=== PATIENT | female | born 2000 | race Two or more races ===

== ENCOUNTER → 2024-04-06 | Outpatient (REF) | payer OTHER | LOC: M SFHCWAGY 14:41 | PROVIDERS: ATTEND Obstetrics & Gynecology | DX: O09.293 Supervision of pregnancy with other poor reproductive or obstetric history, third trimester (principal); Z3A.36 36 weeks gestation of pregnancy ==

== ENCOUNTER 2024-05-03 03:48 | Inpatient (IN) | payer OTHER ==
[~2024-05-03] VITALS: Ht 167.6 cm; Wt 67.0 kg
[2024-05-03] MEDS: OXYTOCIN INJ 10UNITS/ML 1ML VIAL IM ONE (03:45)
[2024-05-03 04:01] VITALS: BP 131/84
[2024-05-03] MEDS ORDERED: LIDOCAINE 1% MDV 20ML VIAL As Ordered ONE (04:14)
[2024-05-03] MEDS ORDERED: RHOGAM 300MCG (1500IU) INJ IM SCH (04:40)
[2024-05-03] MEDS ORDERED: METHYLERGONOVINE MALEATE 0.2 MG TAB PO PRN (04:40)
[2024-05-03] MEDS: LIDOCAINE 1% MDV 20ML VIAL SC ONE (06:00)
[2024-05-03 06:19] LABS: HIV 1&2 SCREEN NEGATIVE (NEGATIVE)
[2024-05-03 06:58] VITALS: BP 132/75; O2SAT 100
[2024-05-03] MEDS: PRENATAL VITAMINS CHEWABLE TABLET PO SCH (09:26)
[2024-05-03] MEDS: DIBUCAINE 1% OINTMENT 30GM TOP PRN (09:31)
[2024-05-03] MEDS ORDERED: SPIR500T PO (10:33)
[2024-05-03] MEDS ORDERED: VITA1CAP25 PO (10:33)
[2024-05-03] MEDS ORDERED: PRENTAB9 PO (10:33)
[2024-05-03] MEDS ORDERED: HOME MED LIST COMPLETE! XX SCH (10:35)
[2024-05-03] MEDS: IBUPROFEN 800 MG TAB PO PRN (13:09)
[2024-05-03] MEDS: ACETAMINOPHEN 325 MG TAB PO PRN (15:45)
[2024-05-03 18:00] VITALS: BP 123/62; O2SAT 98
[2024-05-03] MEDS: DOCUSATE SODIUM 100MG CAPSULE PO PRN (20:39)
[2024-05-03] MEDS: ACETAMINOPHEN 500 MG TAB PO PRN (20:40)
[2024-05-04] MEDS: IBUPROFEN 600MG TAB PO PRN (00:38)
[2024-05-04 06:00] VITALS: BP 115/70; O2SAT 100
[2024-05-04] MEDS ORDERED: IBUP80TA PO (10:21)
[2024-05-04] MEDS ORDERED: ACET-683 PO (10:21)
[2024-05-05] MEDS ORDERED: MEASLES,MUMPS,RUBELLA VACCINE INJ (MMR-II) SC.IMMUN ONE (09:00)
== END 2024-05-04 14:05 | disposition home or self-care (01) | DRG 769 ==
LOC: M LDO 03:48 → M LDI 03:54 → M OBS 06:29
PROVIDERS: ADMIT Advanced Practice Midwife; ATTEND Advanced Practice Midwife
PROC: 10D17Z9 Manual Extraction of Products of Conception, Retained, Via Natural or Artificial Opening (ICD-10-PCS; principal; 2024-05-03)
PROC: 0HQ9XZZ Repair Perineum Skin, External Approach (ICD-10-PCS; 2024-05-03)
DX: Z39.0 Encounter for care and examination of mother immediately after delivery (principal); Z3A.38 38 weeks gestation of pregnancy; O70.1 Second degree perineal laceration during delivery